=== PATIENT | female | born 1975 | race Hispanic/Latino ===

== ENCOUNTER 2022-07-29 13:33 | Emergency (ER) | payer BC ==
[~2022-07-29] VITALS: Ht 162.6 cm; Wt 107.0 kg
[2022-07-29 14:07] LABS: BASOPHILS % (AUTO) 0.4 % (0.0-5.0); EOSINOPHILS % (AUTO) 1.2 % (0.0-8.0); HEMATOCRIT 39.2 % (36-48); LYMPHOCYTES % (AUTO) 18.5 % (21.0-51.0); MEAN CORPUSCULAR HGB CONC 34.4 g/dL (32.0-36.0); MEAN CORPUSCULAR VOLUME 95.8 fL (79-99); MONOCYTES % (AUTO) 7.1 % (3.0-13.0); NEUTROPHILS % (AUTO) 72.5 % (40.0-77.0); PLATELET COUNT (AUTO) 256 K/uL (130-400); RED BLOOD CELL COUNT(AUTO) 4.09 MIL/uL (4.00-5.50); RED CELL DISTRIBUTION WIDTH 11.9 % (11.0-15.5); WHITE BLOOD COUNT (AUTO) 10.3 K/uL (4.8-10.8)
[2022-07-29 14:15] LABS: APPEARANCE,URINE CLEAR (CLEAR); BILIRUBIN,URINE NEGATIVE (NEGATIVE); COLOR,URINE ORANGE (YELLOW); GLUCOSE, URINE (UA) NEGATIVE (NEGATIVE); KETONES,URINE NEGATIVE (NEGATIVE); LEUKOCYTE ESTERASE ,URINE NEGATIVE Leu/uL (NEGATIVE); NITRATE,URINE POSITIVE (NEGATIVE); OCCULT BLOOD,URINE LARGE (NEGATIVE); PH,URINE 5.5 (5.0-8.0); PROTEIN,URINE TRACE mg/dL (NEGATIVE)
[2022-07-29 14:16] LABS: POTASSIUM 4.7 mmol/L (3.5-5.1)
[2022-07-29 14:26] LABS: BACTERIA,URINE Few /HPF (None Seen); SQUAMOUS EPITHELIAL CELL,UR Rare /HPF (0-2); WBC,URINE 0-1 /HPF (0-1)
[2022-07-29 14:28] LABS: ALBUMIN 3.8 g/dL (3.5-5.0); TOTAL PROTEIN, SERUM 7.3 g/dL (6.0-8.3)
[2022-07-29 14:30] LABS: HCG,QUALITATIVE URINE NEGATIVE (NEGATIVE)
[2022-07-29] MEDS ORDERED: ONDANSETRON 4MG INJ ONE (15:23)
[2022-07-29] MEDS ORDERED: MORPHINE 4 MG SYG ONE (15:24)
[2022-07-29] MEDS ORDERED: KETOROLAC 15MG/ML VIAL (15MG/ML) ONE (15:24)
[2022-07-29] MEDS ORDERED: ONDANSETRON 4MG INJ IVP ONE (15:30)
[2022-07-29] MEDS ORDERED: 0.9%NACL 1000ML 1,000 ML IV ONE (15:30)
[2022-07-29] MEDS ORDERED: MORPHINE 4 MG SYG IVP ONE (15:30)
[2022-07-29] MEDS ORDERED: KETOROLAC 15MG/ML VIAL (15MG/ML) IV ONE (15:30)
[2022-07-29] MEDS ORDERED: CEPH500B PO (18:05)
[2022-07-29] MEDS ORDERED: TAMS-1 PO (18:05)
[2022-07-29] MEDS ORDERED: ONDA4TAB10 PO (18:05)
[2022-07-29] MEDS ORDERED: ACET-2079 PO (18:05)
[2022-07-29] MEDS ORDERED: TAMSULOSIN HCL 0.4 MG CAP.ER.24H PO SCH (18:30)
[2022-07-29 18:35] VITALS: BP 154/88
== END 2022-07-29 18:36 | disposition home or self-care (01) ==
LOC: EDH 13:33
DX: N20.1 Calculus of ureter (principal); N39.0 Urinary tract infection, site not specified
CPT/HCPCS: 99284; 74176; 96374; 96361; 96375; 80053; 83690; 85025; 87088; 81001; 81025; 36415; J2405; J2270; J1885; J7030

== ENCOUNTER 2022-07-30 14:53 | Inpatient (IN) | payer BC ==
[~2022-07-30] VITALS: Ht 162.6 cm; Wt 107.0 kg
[2022-07-30] VITALS (15 sets, daily range): BP systolic 114–143; BP diastolic 70–82
[~2022-07-30 14:53] MED LIST: ACET-2079 PO; CEPH500B PO; ONDA4TAB10 PO; TAMS-1 PO
[2022-07-30] MEDS ORDERED: MORPHINE 4 MG SYG IVP PRN (15:30)
[2022-07-30] MEDS ORDERED: ONDANSETRON 4MG INJ IV PRN (15:30)
[2022-07-30] MEDS ORDERED: CEFTRIAXONE 1G VIAL IVP SCH (15:30)
[2022-07-30] MEDS ORDERED: DIPHENHYDRAMINE HCL 25 MG CAPSULE PO PRN (15:30)
[2022-07-30] MEDS: 0.9%NACL 1000ML 1,000 ML IV SCH (15:30)
[2022-07-30] MEDS ORDERED: CEFTRIAXONE 1G VIAL IVP ONE (15:30)
[2022-07-30] MEDS ORDERED: MORPHINE 2 MG SYG IVP PRN (15:30)
[2022-07-30] MEDS ORDERED: ACETAMINOPHEN 325 MG TAB PO PRN ×2 (15:30)
[2022-07-30] MEDS ORDERED: CEFTRIAXONE 1G VIAL ONE (15:32)
[2022-07-30] MEDS ORDERED: ONDANSETRON 4MG INJ ONE (15:32)
[2022-07-30] MEDS ORDERED: MORPHINE 4 MG SYG ONE (15:32)
[2022-07-30 15:59] LABS: BASOPHILS % (AUTO) 0.2 % (0.0-5.0); EOSINOPHILS % (AUTO) 0.1 % (0.0-8.0); HEMATOCRIT 37.4 % (36-48); MEAN CORPUSCULAR HEMOGLOBIN 32.5 pg (27.0-33.0); MEAN CORPUSCULAR HGB CONC 34.5 g/dL (32.0-36.0); MEAN CORPUSCULAR VOLUME 94.2 fL (79-99); MONOCYTES % (AUTO) 6.4 % (3.0-13.0); PLATELET COUNT (AUTO) 216 K/uL (130-400); RED BLOOD CELL COUNT(AUTO) 3.97 MIL/uL (4.00-5.50); RED CELL DISTRIBUTION WIDTH 11.9 % (11.0-15.5); WHITE BLOOD COUNT (AUTO) 14.6 K/uL (4.8-10.8)
[2022-07-30] MEDS ORDERED: KETOROLAC 15MG/ML VIAL (15MG/ML) IV PRN (16:00)
[2022-07-30 16:31] LABS: ALBUMIN 3.5 g/dL (3.5-5.0); CREATININE 1.4 mg/dL (0.5-1.5); POTASSIUM 3.7 mmol/L (3.5-5.1); TOTAL PROTEIN, SERUM 6.9 g/dL (6.0-8.3)
[2022-07-30 18:04] LABS: APPEARANCE,URINE CLEAR (CLEAR); BILIRUBIN,URINE NEGATIVE (NEGATIVE); COLOR,URINE YELLOW (YELLOW); GLUCOSE, URINE (UA) NEGATIVE (NEGATIVE); KETONES,URINE 20 mg/dL (NEGATIVE); LEUKOCYTE ESTERASE ,URINE NEGATIVE Leu/uL (NEGATIVE); NITRATE,URINE NEGATIVE (NEGATIVE); OCCULT BLOOD,URINE NEGATIVE (NEGATIVE); PH,URINE 6.5 (5.0-8.0); PROTEIN,URINE NEGATIVE (NEGATIVE); UROBILINOGEN,URINE 0.2 mg/dL (0.2-1.0)
[2022-07-30 18:08] LABS: MUCUS,URINE RARE LPF (None Seen); WBC,URINE 0-1 /HPF (0-1)
[2022-07-30 18:16] LABS: BACTERIA,URINE Moderate /HPF (None Seen); SQUAMOUS EPITHELIAL CELL,UR Few /HPF (0-2)
[2022-07-30] MEDS: HYDROMORPHONE 1 MG INJ IVP PRN (18:37)
[2022-07-30] MEDS ORDERED: IOHEXOL 350 MG/ML 100ML INFUS..BTL IV ONE (19:40)
[2022-07-30] MEDS ORDERED: SUCCINYLCHOLINE 200MG/10ML SYR ONE (20:12)
[2022-07-30] MEDS ORDERED: ROCURONIUM 10MG/1ML SYR 10 MG/ML ML ONE (20:12)
[2022-07-30] MEDS ORDERED: PROPOFOL 10 MG/ML 20ML VIAL IV ONE (20:12)
[2022-07-30] MEDS ORDERED: FENTANYL CITRATE PF 50 MCG/1 ML 2ML VIAL ONE (20:13)
[2022-07-30] MEDS ORDERED: EPHEDRINE SULFATE 50 MG/ML AMPULE ONE (20:57)
[2022-07-30] MEDS: FAMOTIDINE 20MG VIAL IV SCH (21:00)
[2022-07-30] MEDS ORDERED: GLYCOPYRROLATE 1 MG/5 ML SYRINGE ONE (21:55)
[2022-07-30] MEDS ORDERED: NEOSTIGMINE 5MG/5ML SYR IV ONE (21:55)
[2022-07-31] VITALS (7 sets, daily range): BP systolic 106–126; BP diastolic 63–82
[2022-07-31] MEDS: 0.9%NACL 1000ML 1,000 ML IV SCH (01:30)
[2022-07-31 05:05] LABS: BASOPHILS % (AUTO) 0.1 % (0.0-5.0); HEMATOCRIT 36.3 % (36-48); LYMPHOCYTES % (AUTO) 3.4 % (21.0-51.0); MEAN CORPUSCULAR HEMOGLOBIN 32.9 pg (27.0-33.0); MEAN CORPUSCULAR HGB CONC 34.2 g/dL (32.0-36.0); MEAN CORPUSCULAR VOLUME 96.3 fL (79-99); MONOCYTES % (AUTO) 1.3 % (3.0-13.0); NEUTROPHILS % (AUTO) 94.8 % (40.0-77.0); PLATELET COUNT (AUTO) 211 K/uL (130-400); RED BLOOD CELL COUNT(AUTO) 3.77 MIL/uL (4.00-5.50); WHITE BLOOD COUNT (AUTO) 14.2 K/uL (4.8-10.8)
[2022-07-31 05:28] LABS: ALBUMIN 2.9 g/dL (3.5-5.0); CREATININE 1.2 mg/dL (0.5-1.5); POTASSIUM 3.9 mmol/L (3.5-5.1); TOTAL PROTEIN, SERUM 6.3 g/dL (6.0-8.3)
[2022-07-31] MEDS: FAMOTIDINE 20MG VIAL IV SCH (07:52)
[2022-07-31] MEDS: HYDROMORPHONE 1 MG INJ IVP PRN (07:53)
== END 2022-07-31 12:45 | disposition home or self-care (01) | DRG 660 ==
LOC: EDH 14:53 → DIRECT 14:54 → EDHIP 14:55 → 3DH 22:51
PROVIDERS: ADMIT Hospitalist; ATTEND Hospitalist
PROC: BT1F1ZZ Fluoroscopy of Left Kidney, Ureter and Bladder using Low Osmolar Contrast (ICD-10-PCS; 2022-07-30)
PROC: 0T778DZ Dilation of Left Ureter with Intraluminal Device, Via Natural or Artificial Opening Endoscopic (ICD-10-PCS; principal; 2022-07-30 21:00)
PROC: 0TF78ZZ Fragmentation in Left Ureter, Via Natural or Artificial Opening Endoscopic (ICD-10-PCS; 2022-07-30 21:00)
DX: N20.1 Calculus of ureter (principal); N39.0 Urinary tract infection, site not specified; Z68.41 Body mass index [BMI] 40.0-44.9, adult; Z20.822 Contact with and (suspected) exposure to COVID-19; E66.01 Morbid (severe) obesity due to excess calories
CPT/HCPCS: 36415; 74018; 74420; 80053; 81001; 85025; 87635; C1758; C1769; C1894; C2617; G0378; J0330; J0696; J1170; J2270; J2405; J2704; J2710; J3010; J3490; J7030; Q9967